=== PATIENT | female | born 1980 | race Caucasian/White ===

== ENCOUNTER 2021-06-17 13:52 | Observation (INO) | payer SELFPAY ==
[2021-06-17] VITALS (12 sets, daily range): BP systolic 68–138; BP diastolic 44–102
[~2021-06-17] VITALS: Ht 162.6 cm; Wt 65.9 kg
--- NOTE | 2021-06-17 13:55 | NUR ---
MARLI GODOY RN, PRESENT IN ROOM FOR PATIENT'S PRIMARY CARE NURSE.
--- NOTE | 2021-06-17 13:56 | NUR ---
PATIENT TO ROOM 11
--- NOTE | 2021-06-17 15:00 | NUR ---
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
[2021-06-17 15:45] LABS: HEMATOCRIT 38.8 % (37.0-47.0); HEMOGLOBIN 13.5 g/dl (12.0-16.0); IMMATURE GRANULOCYTES 0.2 % (0.0-5.0); MEAN CELL VOLUME 95.6 fL CALC (80.0-100.0); MEAN CORPUSCULAR HGB 33.3 pG CALC (26.0-32.0); MEAN CORPUSCULAR HGB CONC 34.8 g/dL CAL (32.0-36.0); NEUT# 7.16 thou/uL (2.00-7.15); RED BLOOD COUNT 4.06 mill/uL (4.20-5.60); RED CELL DISTRI WIDTH 12.9 % (11.5-15.5)
[2021-06-17 15:52] LABS: URINE BLOOD DIPSTICK TRACE-INTACT (NEGATIVE); URINE COLOR YELLOW; URINE GLUCOSE - DIPSTICK NEGATIVE (NEGATIVE); URINE KETONE NEGATIVE (NEGATIVE); URINE LEUK ESTERASE NEGATIVE (NEGATIVE); URINE PH 5.5 (4.5-8.0); URINE PROTEIN - DIPSTICK TRACE mg/dL (NEG-TRACE); URINE SPECIFIC GRAVITY >=1.030; URINE UROBILINOGEN - DIPSTICK 0.2 E.U./dL (0.2)
[2021-06-17 15:55] LABS: URINE BILIRUBIN - DIPSTICK SMALL (NEGATIVE); URINE NITRITE - DIPSTICK POSITIVE (Negative)
[2021-06-17 15:56] LABS: ALBUMIN 3.9 g/dL (3.2-5.0); ALKALINE PHOSPHATASE 94 u/l (38-126); ANION GAP 10 (6-22 (CALC)); BILIRUBIN, TOTAL 0.7 mg/dL (0.0-1.4); BUN 15 mg/dL (7-17); BUN/CREATININE RATIO 18 (12-20 (CALC)); CARBON DIOXIDE 25 mmol/l (22-30); CHLORIDE 106 mmol/l (95-108); CREATININE 0.8 mg/dL (0.5-1.0); GFR > 60 ML/MIN (>=60 (CALC)); GFR FOR AFR.AMER. > 60 ML/MIN (>=60 (CALC)); LIPASE 22 u/l (23-300); POTASSIUM 3.3 mmol/l (3.5-5.1); SGOT/AST 47 u/l (14-36); SODIUM 138 mmol/l (137-146); TOTAL PROTEIN 6.8 g/dL (6.3-8.2)
[2021-06-17 15:58] LABS: URINE BACTERIA FEW hpf; URINE MUCUS MODERATE hpf (NONE-FEW); URINE SQUAMOUS EPITHELIAL CELL FEW EPI/hpf (0-FEW)
--- NOTE | 2021-06-17 16:00 | NUR ---
PT RESTING IN BED, NO COMPLAINTS
--- NOTE | 2021-06-17 18:00 | NUR ---
REASSESSMENT COMPLETED
--- NOTE | 2021-06-17 19:00 | NUR ---
RECIEVED REPORT FROM ABBE VELAZQUEZ. PT SITTING UP IN BED. DROWSY. PT STATES NAME. BIRTHDAY, AND REPORTS THAT SHE IS IN THE HOSPITAL. PT RESPONDS I DON'T KNOW TO PRESIDENT AND YEAR. VSS. IV NOTED TO RIGHT WRIST AND RIGHT FOOT. MONITORING LEADS AND PULSE OX REPLACED. PT CALM. AWAITING BED PLACEMENT
--- NOTE | 2021-06-17 19:03 | NUR ---
CALL RECEIVED FOR BED PLACEMENT. ICU #[id number] ASSIGNED AT THIS TIME.
--- NOTE | 2021-06-17 19:27 | NUR ---
O2 SATURATION DECREASED TO 85% ON ROOM AIR. O2 AT 2L VIA NC PLACED. O2 SAT INCREASED TO 93%. WILL CONTINUE TO MONITOR.
--- NOTE | 2021-06-17 19:33 | NUR ---
CALL RECEIVED FROM Ivan ISABEL RN IN ED FOR TELEPHONE REPORT. Ivan RIDDLE RN ASSIGNED TO THIS PT. TELEPHONE REPORT TAKEN BY Ivan RIDDLE RN AT THIS TIME.
--- NOTE | 2021-06-17 19:36 | NUR ---
REPORT GIVEN TO ABBE IQBAL IN ICU.
--- NOTE | 2021-06-17 19:36 | NUR ---
Admission Note Report Given to: RASHEED Transported by: Wheelchair X Stretcher Transported with: X Nurse Transporter X Patent IV X O2 X Intensive Care Medicine Specialist Location: X ICU [facility]
--- NOTE | 2021-06-17 19:45 | NUR ---
PT ARRIVES VIA STRETCHER ACCOMPANIED BY Ivan ISABEL RN. PT SLIDES INDEPENDENTLY FROM STRETCHER TO BED.
--- NOTE | 2021-06-17 20:59 | NUR ---
PHYSICAL ASSESMENT COMPLETE. PT CURRENTLY DENIES PAIN OR DISCOMFORT. SCHEDULED MEDICATIONS AND PRN MEDICATION ADMINISTERED, SEE E-MAR. PT DENIES ANY NEEDS AT THIS TIME. PT HAS 2 IV SITES; 22 G IN THE RIGHT WRIST RUNNING NS@ 100 MPH; 22 IN THE RIGHT ANKLE WHICH IS SL. BOTH SITES ARE HEALTH WITH NO REDDNESS OR INFLAMATION. HEART AND LUNG SOUNDS HEARD CLEAR WITHIN NORMAL LIMITS. ITEMS WITHIN REACH, BED LOCKED IN LOW POSITION W/ BEDRAILS UP X2. CALL LEE WITHIN REACH, AGREES TO CALL PRN.
--- NOTE | 2021-06-17 22:00 | NUR ---
PT SEEN RESTLESS IN BED.SUPPORTIVE CARE OFFERED TO PATIENT. PT ENCOURAGED TO VOICE CONCERNS AND EXPRESS NEEDS. PT ORIENTED TO CALL AND INSTRUCTED TO CALL FOR ASSISTANCE, ESPECIALLY PRIOR TO AMBULATION. PT INSTRUCTED TO DEEP BREATH AND COUGH ONCE EACH HOUR WHILE AWAKE TO HELP PREVENT PNEMONIA. PT ENCOURAGED TO REPOSITION SELF FREQUENTLY WHILE IN BED TO PREVENT BED SORES.
[2021-06-18] VITALS: BP 127/77
--- NOTE | 2021-06-18 | NUR ---
PT ALERT & ORIENTED X 2; PERSON AND PLACE; FOLLOWS COMMANDS; PT STAYS IN BED VITAL SIGN STABLE; RESTING COMFORTABLY.
--- NOTE | 2021-06-18 01:30 | NUR ---
PT WOKE UP ANXIOUS AND DISORIENTED, GIVEN PRN MEDICATION AND REORIENTED.
[2021-06-18 02:00] VITALS: BP 125/73
--- NOTE | 2021-06-18 03:45 | NUR ---
PT RESTING IN BED, NO SIGNS OF DISTRESS NOTED, RESP EVEN AND UNLABORED. PT VOICES NO NEEDS OR COMPLAINTS AT THIS TIME. CALL LIGHT IN REACH, CONTINUE TO MONITOR.
[2021-06-18 04:00] VITALS: BP 110/72
--- NOTE | 2021-06-18 04:30 | NUR ---
[facility].
[2021-06-18 04:59] LABS: HEMATOCRIT 38.1 % (37.0-47.0); HEMOGLOBIN 13.1 g/dl (12.0-16.0); MEAN CELL VOLUME 97.9 fL CALC (80.0-100.0); MEAN CORPUSCULAR HGB 33.7 pG CALC (26.0-32.0); MEAN CORPUSCULAR HGB CONC 34.4 g/dL CAL (32.0-36.0); RED BLOOD COUNT 3.89 mill/uL (4.20-5.60)
[2021-06-18 05:17] LABS: ANION GAP 10 (6-22 (CALC)); BUN 11 mg/dL (7-17); BUN/CREATININE RATIO 14 (12-20 (CALC)); CARBON DIOXIDE 21 mmol/l (22-30); CHLORIDE 112 mmol/l (95-108); CREATININE 0.8 mg/dL (0.5-1.0); GFR > 60 ML/MIN (>=60 (CALC)); GFR FOR AFR.AMER. > 60 ML/MIN (>=60 (CALC)); POTASSIUM 3.7 mmol/l (3.5-5.1); SODIUM 140 mmol/l (137-146)
--- NOTE | 2021-06-18 05:58 | NUR ---
PT RESTING QUIETLY WITH EYES CLOSED.
[2021-06-18 06:00] VITALS: BP 108/63
[2021-06-18 08:00] VITALS: BP 126/87
--- NOTE | 2021-06-18 09:00 | NUR ---
PT SEEN DROWSY BUT AROUSABLE UPON FIRST ENCOUNTER. PT WITH FACIAL ABRASIONS PER PICKING AT HER SKIN R/T DRUG USE. PT NOT TALKATIVE, STATES THAT SHE DOES NOT KNOW WHERE SHE LIVES, BUT THAT SHE IS VISITING IN [place]. LUNGS CLEAR, RA. PT ABLE TO BEAR HER WEIGHT TO BSC.
--- NOTE | 2021-06-18 11:02 | NUR ---
PT SEEN BY DR VANEGAS THIS MORNING. SHE CONTINUES TO BE IRRITATED WITH ATTEMPTED INTERACTIONS, BUT DOES WANT TO GO HOME. EMS NOTE REVIEWED, ADDRESS FOUND WHERE SHE WAS PICKED UP, STATES THAT IS WHERE SHE WANTS TO BE DROPPED OFF. DR VANEGAS DISCHARGES PT, TAXI SUMMONED, PT TAKEN TO TAXI. PT DID NOT SIGN DISCHARGE PAPERS, BUT WAS PROVIDED INFORMATION ABOUT POLYSUBSTANCE ABUSE.
== END 2021-06-18 11:00 | disposition home or self-care (01) | DRG 917 ==
LOC: ED 13:52 → ED-I 15:24 → ED 18:15 → ICU 18:16
PROVIDERS: Internal Medicine; ADMIT Hospitalist; ATTEND Hospitalist
DX: T40.411A Poisoning by fentanyl or fentanyl analogs, accidental (unintentional), initial encounter (principal); G92.8 Other toxic encephalopathy; F19.20 Other psychoactive substance dependence, uncomplicated; T43.621A Poisoning by amphetamines, accidental (unintentional), initial encounter; R82.71 Bacteriuria; Z59.00 Homelessness unspecified; Z20.822 Contact with and (suspected) exposure to COVID-19
CPT/HCPCS: J1650; J2060